=== PATIENT | male | born 1995 | race Caucasian/White ===

== ENCOUNTER 2016-12-06 20:56 | Emergency (ER) | payer OTHER ==
[~2016-12-06] VITALS: Ht 182.8 cm
[~2016-12-06 20:56] MED LIST: ADVAIR 100/501 E1 INH; ADVAIR 250/501 EA INH; ALBUTEROL0.09 MG/A2 IH; ALBUTEROL0.09 MG/A2 INH; AMOXICILLIN500 MG PO; AUGMENTIN 875875 MG PO; BENADRYL ALLERG25 M5 PO; CIPRODEX 0.3%-7.5 ML OT; CLARITIN10 MG PO; FLONASE 0.05% 121 EA NAS; KEFLEX500 M1 PO; MOTRIN400 MG PO; MOTRIN600 MG PO; PREDNISONE10 MG PO; QVAR INH; QVAR0.08 MG/AC IH; SILVADENE,SSD C50 GM T; TRIMOX500 MG PO; ZITHROMAX Z PA250 MG PO; ZOVIRAX400 MG PO; ZYRTEC10 MG PO
[2016-12-06 20:59] VITALS: BP 160/97
[2016-12-06] MEDS ORDERED: ATARAX,VISTARIL50 MG PO (21:32)
[2016-12-06] MEDS ORDERED: NYSTATIN CREAM15 GM T (21:32)
== END 2016-12-06 21:36 | disposition home or self-care (01) ==
LOC: ED 20:56
DX: B35.4 Tinea corporis (principal); B35.6 Tinea cruris

== ENCOUNTER 2016-12-20 23:13 | Emergency (ER) | payer OTHER ==
[~2016-12-20] VITALS: Ht 182.8 cm; Wt 158.8 kg
[~2016-12-20 23:13] MED LIST changes: +ATARAX,VISTARIL50 MG PO; +NYSTATIN CREAM15 GM T
[2016-12-20 23:20] VITALS: BP 140/63
[2016-12-20] MEDS ORDERED: NYSTATIN CREAM15 GM T ×2 (23:20→23:47)
[2016-12-20] MEDS ORDERED: LOTRIMIN AF133 GM T (23:46)
== END 2016-12-21 | disposition home or self-care (01) ==
LOC: ED 23:13
DX: L30.8 Other specified dermatitis (principal); B37.89 Other sites of candidiasis

== ENCOUNTER 2017-06-16 14:18 | Emergency (ER) | payer OTHER ==
[~2017-06-16] VITALS: Ht 182.8 cm; Wt 145.1 kg
[~2017-06-16 14:18] MED LIST changes: +LOTRIMIN AF133 GM T
[2017-06-16 14:39] VITALS: BP 113/67
[2017-06-16] MEDS ORDERED: Motrin,Rufen800 MG PO (17:18)
[2017-06-16] MEDS ORDERED: CYCLOBENZAPRINE5 M3 PO (17:18)
== END 2017-06-16 17:29 | disposition home or self-care (01) ==
LOC: ED 14:18
DX: S20.212A Contusion of left front wall of thorax, initial encounter (principal); V49.88XA Car occupant (driver) (passenger) injured in other specified transport accidents, initial encounter; Y93.89 Activity, other specified; Y92.413 State road as the place of occurrence of the external cause; Y99.9 Unspecified external cause status

== ENCOUNTER 2017-12-28 17:37 | Emergency (ER) | payer OTHER ==
[~2017-12-28] VITALS: Ht 182.8 cm; Wt 140.6 kg
[~2017-12-28 17:37] MED LIST changes: +CYCLOBENZAPRINE5 M3 PO; +Motrin,Rufen800 MG PO
[2017-12-28 17:38] VITALS: BP 164/88
[2017-12-28 18:15] LABS: BASO % 0.4 % (0.0-1.0); EOS # 0.2 10*3/uL (0.0-0.4); EOS % 1.9 % (1.0-4.0); HEMATOCRIT 43.2 % (42.0-52.0); HEMOGLOBIN 14.2 g/dl (14.0-18.0); LYMPH # 2.3 10*3/uL (1.3-4.4); LYMPH % 30.3 % (27.0-41.0); MEAN CELL VOLUME 86.9 fl (80.0-94.0); MEAN CORPUSCULAR HGB 28.6 pg (27.0-31.0); MEAN CORPUSCULAR HGB CONC 32.9 g/dl (33.0-37.0); MEAN PLATELET VOLUME 8.6 fl (9.6-12.3); MONO # 0.9 10*3/uL (0.1-1.0); MONO % 11.7 % (3.0-9.0); NEUT # 4.3 10*3/uL (2.3-7.9); NEUT % 55.4 % (47.0-73.0); PLATELET COUNT AUTOMATED 230 10*3/uL (130-400); RED BLOOD COUNT 4.97 10*6/uL (4.50-5.90); RED CELL DISTRI WIDTH 13.2 % (0-14.5); WHITE BLOOD COUNT 7.7 10*3/uL (4.8-10.8)
[2017-12-28 18:37] LABS: ALBUMIN 3.3 gm/dl (3.1-4.5); ALKALINE PHOSPHATASE 75 U/L (45-117); BUN 8 mg/dl (7-24); CHLORIDE 109 mmol/L (98-107); POTASSIUM 3.9 mmol/L (3.5-5.1); SGOT/AST 24 IU/L (3-35); SGPT/ALT 44 U/L (12-78); SODIUM 142 mmol/L (136-145); TOTAL PROTEIN 7.5 gm/dL (6.4-8.2)
[2017-12-28] MEDS ORDERED: CIPRODEX 0.3%-7.5 ML OT (18:37)
[2017-12-28 18:39] LABS: ACETAMINOPHEN (TYLENOL) < 2.0 ug/ml (10-30)
[2017-12-28] MEDS ORDERED: Motrin,Rufen800 MG PO (18:50)
== END 2017-12-28 17:51 | disposition home or self-care (01) ==
LOC: ED 17:37
PROVIDERS: Physician Assistant
DX: H60.91 Unspecified otitis externa, right ear (principal)

== ENCOUNTER 2018-07-26 16:02 | Emergency (ER) | payer OTHER ==
[~2018-07-26] VITALS: Ht 182.8 cm; Wt 158.8 kg
[2018-07-26 16:03] VITALS: BP 144/98
[2018-07-26] MEDS ORDERED: PREDNISONE10 MG PO (16:18)
== END 2018-07-26 16:38 | disposition home or self-care (01) ==
LOC: ED 16:02
DX: M77.9 Enthesopathy, unspecified (principal); M25.521 Pain in right elbow; R03.0 Elevated blood-pressure reading, without diagnosis of hypertension

== ENCOUNTER 2020-10-07 19:18 | Emergency (ER) | payer SELFPAY ==
[~2020-10-07] VITALS: Wt 160.6 kg
[2020-10-07 19:31] VITALS: BP 128/69
[2020-10-07 20:52] LABS: BILIRUBIN Negative (Negative); BLOOD 3+ (Negative); CLARITY Clear (Clear); COLOR Yellow (Yellow); GLUCOSE Negative (Negative); KETONE Trace (Negative); LEUKO ESTERASE Negative (Negative); NITRITE Negative (Negative); UROBILINOGEN 0.2 E.U./dl (0.0-1.0)
[2020-10-07 21:07] LABS: BACTERIA TRACE; MUCOUS 1+; RBC 21-30 rbc/hpf (0-2); WBC 0-2 wbc/hpf (0-5)
[2020-10-07 21:46] LABS: BASO % 0.3 % (0.0-1.0); EOS # 0.2 10*3/uL (0.0-0.4); EOS % 1.1 % (1.0-4.0); HEMATOCRIT 47.5 % (42.0-52.0); LYMPH % 15.1 % (27.0-41.0); MEAN CELL VOLUME 88.3 fl (80.0-94.0); MEAN CORPUSCULAR HGB 28.4 pg (27.0-31.0); MEAN CORPUSCULAR HGB CONC 32.2 g/dl (33.0-37.0); MEAN PLATELET VOLUME 8.7 fl (9.6-12.3); MONO # 0.9 10*3/uL (0.1-1.0); MONO % 6.5 % (3.0-9.0); NEUT # 10.2 10*3/uL (2.3-7.9); NEUT % 76.8 % (47.0-73.0); PLATELET COUNT AUTOMATED 246 10*3/uL (130-400); RED BLOOD COUNT 5.38 10*6/uL (4.50-5.90); RED CELL DISTRI WIDTH 12.9 % (0-14.5); WHITE BLOOD COUNT 13.3 10*3/uL (4.8-10.8)
[2020-10-07 22:02] LABS: ALBUMIN 3.1 gm/dl (3.1-4.5); ALKALINE PHOSPHATASE 77 U/L (45-117); BUN 14 mg/dl (7-24); CHLORIDE 109 mmol/L (98-107); CREATININE 0.88 mg/dL (0.70-1.30); LIPASE 186 U/L (73-393); POTASSIUM 4.1 mmol/L (3.5-5.1); SGOT/AST 26 IU/L (3-35); SGPT/ALT 41 U/L (12-78); SODIUM 140 mmol/L (136-145); TOTAL PROTEIN 7.2 gm/dL (6.4-8.2)
[2020-10-07] MEDS ORDERED: HYDROCODONE-AC1 EAC1 PO (23:43)
[2020-10-07] MEDS ORDERED: FLOMAX0.4 MG PO (23:43)
[2020-10-07] MEDS ORDERED: IBUPROFEN600 MG PO ×2 (23:43)
== END 2020-10-07 23:52 | disposition home or self-care (01) ==
LOC: ED 19:18
PROVIDERS: Emergency Medicine; Physician Assistant
DX: N23 Unspecified renal colic (principal); Z88.8 Allergy status to other drugs, medicaments and biological substances

== ENCOUNTER 2022-05-20 20:30 | Emergency (ER) | payer SELFPAY ==
[~2022-05-20] VITALS: Ht 185.4 cm; Wt 149.7 kg
[~2022-05-20 20:30] MED LIST changes: +FLOMAX0.4 MG PO; +HYDROCODONE-AC1 EAC1 PO; +IBUPROFEN600 MG PO
[2022-05-20 20:40] VITALS: BP 142/81
== END 2022-05-20 23:07 | disposition left against medical advice (07) ==
LOC: ED 20:30
DX: R06.02 Shortness of breath (principal); Z53.21 Procedure and treatment not carried out due to patient leaving prior to being seen by health care provider

== ENCOUNTER 2022-06-17 11:24 | Emergency (ER) | payer SELFPAY ==
[~2022-06-17] VITALS: Ht 185.4 cm; Wt 152.9 kg
[2022-06-17 11:35] VITALS: BP 146/89
[2022-06-17 12:20] LABS: BASO % 0.4 % (0.0-1.0); EOS # 0.3 10*3/uL (0.0-0.4); EOS % 2.3 % (1.0-4.0); HEMATOCRIT 44.1 % (42.0-52.0); LYMPH # 2.4 10*3/uL (1.3-4.4); LYMPH % 21.6 % (27.0-41.0); MEAN CELL VOLUME 86.6 fl (80.0-94.0); MEAN CORPUSCULAR HGB 29.3 pg (27.0-31.0); MEAN CORPUSCULAR HGB CONC 33.8 g/dl (33.0-37.0); MEAN PLATELET VOLUME 8.6 fl (9.6-12.3); MONO # 0.6 10*3/uL (0.1-1.0); MONO % 5.6 % (3.0-9.0); NEUT # 7.7 10*3/uL (2.3-7.9); NEUT % 69.6 % (47.0-73.0); PLATELET COUNT AUTOMATED 207 10*3/uL (130-400); RED BLOOD COUNT 5.09 10*6/uL (4.50-5.90); RED CELL DISTRI WIDTH 13.6 % (0-14.5)
[2022-06-17] MEDS ORDERED: CEPHALEXIN500 M1 PO (14:55)
== END 2022-06-17 15:18 | disposition home or self-care (01) ==
LOC: ED 11:24
PROVIDERS: Physician Assistant
DX: J03.00 Acute streptococcal tonsillitis, unspecified (principal); B27.90 Infectious mononucleosis, unspecified without complication; F10.90 Alcohol use, unspecified, uncomplicated; Z88.8 Allergy status to other drugs, medicaments and biological substances

== ENCOUNTER 2022-07-19 17:36 | Emergency (ER) | payer BC ==
[~2022-07-19] VITALS: Ht 185.4 cm; Wt 154.2 kg
[~2022-07-19 17:36] MED LIST changes: +CEPHALEXIN500 M1 PO
[2022-07-19 17:48] VITALS: BP 104/67
[2022-07-19 19:25] LABS: BASO % 0.3 % (0.0-1.0); EOS # 0.1 10*3/uL (0.0-0.4); EOS % 1.3 % (1.0-4.0); HEMATOCRIT 46.3 % (42.0-52.0); LYMPH # 2.7 10*3/uL (1.3-4.4); LYMPH % 29.5 % (27.0-41.0); MEAN CELL VOLUME 87.5 fl (80.0-94.0); MEAN CORPUSCULAR HGB 29.3 pg (27.0-31.0); MEAN CORPUSCULAR HGB CONC 33.5 g/dl (33.0-37.0); MEAN PLATELET VOLUME 8.7 fl (9.6-12.3); MONO # 0.8 10*3/uL (0.1-1.0); MONO % 8.6 % (3.0-9.0); NEUT # 5.4 10*3/uL (2.3-7.9); NEUT % 60.1 % (47.0-73.0); PLATELET COUNT AUTOMATED 241 10*3/uL (130-400); RED BLOOD COUNT 5.29 10*6/uL (4.50-5.90); WHITE BLOOD COUNT 9.1 10*3/uL (4.8-10.8)
[2022-07-19 19:39] LABS: ALKALINE PHOSPHATASE 65 U/L (46-116); BUN 15 mg/dl (9-23); CHLORIDE 106 mmol/L (98-107); POTASSIUM 4.4 mmol/L (3.4-5.1); SGPT/ALT 39 U/L (10-49); TOTAL PROTEIN 7.6 gm/dL (6.0-8.0)
[2022-07-19] MEDS ORDERED: PREDNISONE20 M1 PO (20:39)
== END 2022-07-19 20:56 | disposition home or self-care (01) ==
LOC: ED 17:36
PROVIDERS: Physician Assistant
DX: M25.562 Pain in left knee (principal); Z88.8 Allergy status to other drugs, medicaments and biological substances

== ENCOUNTER 2023-07-18 19:38 | Emergency (ER) | payer OTHER ==
[~2023-07-18] VITALS: Ht 185.4 cm; Wt 145.1 kg
[~2023-07-18 19:38] MED LIST changes: +PREDNISONE20 M1 PO
[2023-07-18 19:46] VITALS: BP 123/77
[2023-07-18 20:33] LABS: HEMATOCRIT 46.3 % (42.0-52.0); MEAN CELL VOLUME 87.9 fl (80.0-94.0); MEAN CORPUSCULAR HGB 28.3 pg (27.0-31.0); MEAN CORPUSCULAR HGB CONC 32.2 g/dl (33.0-37.0); MEAN PLATELET VOLUME 8.9 fl (9.6-12.3); PLATELET COUNT AUTOMATED 177 10*3/uL (130-400); RED BLOOD COUNT 5.27 10*6/uL (4.50-5.90); RED CELL DISTRI WIDTH 13.4 % (0-14.5); WHITE BLOOD COUNT 4.8 10*3/uL (4.8-10.8)
[2023-07-18 20:35] LABS: MANUAL DIFF REFLEX YES
[2023-07-18 20:55] LABS: ALKALINE PHOSPHATASE 67 U/L (46-116); BUN 11 mg/dl (9-23); CHLORIDE 108 mmol/L (98-107); POTASSIUM 3.7 mmol/L (3.4-5.1); SGPT/ALT 42 U/L (5-49); TOTAL PROTEIN 7.1 gm/dL (6.0-8.0)
[2023-07-18 20:59] LABS: OVALOCYTES FEW; PLATELET SUFFICIENCY NORMAL (NORMAL); TOTAL CELLS COUNTED 100 #CELLS
== END 2023-07-18 21:58 | disposition home or self-care (01) ==
LOC: ED 19:38
PROVIDERS: Nurse Practitioner Family
DX: J10.1 Influenza due to other identified influenza virus with other respiratory manifestations (principal); Z20.822 Contact with and (suspected) exposure to COVID-19; J40 Bronchitis, not specified as acute or chronic; Z88.8 Allergy status to other drugs, medicaments and biological substances; Z79.899 Other long term (current) drug therapy; Z79.2 Long term (current) use of antibiotics